=== PATIENT | female | born 1940 | race Caucasian/White ===

== ENCOUNTER → 2016-10-27 | Outpatient (CLI) | payer MEDICARE, BC ==
[~2016-10-27] MED LIST: ASA325 MG PO; ATIVAN-DPS0.5 MG PO; BENADRYL-DPS25 MG PO; CITRACAL SOFT1 EACH PO; MAALOX DPS30 ML PO; MILK OF MAGNESI10 ML PO; NORVASC5 MG PO; OMEGA-3 DPS1000 MG PO; OXY IR DPS5 MG PO; PRESERVISION A1 EAC1 PO; SENOKOT S1 TAB PO; SURFAK DPS240 MG PO; THERA1 EACH PO; TYLENOL DPS325 MG PO; ULTRAM DPS50 MG PO; ZANTAC150 MG PO; ZOCOR DPS40 MG PO; ZOLOFT DPS50 MG PO
== END | disposition home or self-care (01) ==
LOC: PTH.S 08:46
DX: Z01.818 Encounter for other preprocedural examination (principal)

== ENCOUNTER 2016-11-08 05:00 | Inpatient (IN) | payer MEDICARE, BC ==
[~2016-11-08] VITALS: Ht 157.5 cm; Wt 86.0 kg
--- NOTE | ~2016-11-08 | HP ---
ADMIT: 11/08/2016 RM/LOC: W.01 [facility] MR#: [id number] [id number] [address] AVA MAHARAJ L [address] [place] [address] Pre-OP History and Physical SEX: F AGE: 76 : 1940 DATE OF SERVICE: CHIEF COMPLAINT: Shoulder pain. HISTORY OF PRESENT ILLNESS: The patient is a 76-year-old female, with a longstanding history of right shoulder pain. She had left shoulder replacement with good result. She has failed conservative care on the right, now being admitted for right shoulder arthroplasty. PAST MEDICAL HISTORY: Include hypertension. PAST SURGICAL HISTORY: Include a left shoulder arthroplasty. MEDICATIONS: Include: 1. Multiple vitamin. 2. Calcium. 3. Aspirin. 4. Ativan. 5. Prilosec. 6. Norvasc. 7. Zoloft. 8. Zocor. ALLERGIES: NONE. SOCIAL HISTORY: Denies any significant tobacco or alcohol use. REVIEW OF SYSTEMS: Negative. PHYSICAL EXAMINATION: GENERAL: On exam, a 76-year-old female. MUSCULOSKELETAL: She has a large amount of crepitus in the right shoulder with external rotation of 45, elevate to 110, good rotator cuff strength. ADMIT: 11/08/2016 RM/LOC: W.01 [facility] MR#: [id number] [facility] [address] [address] AVA MAHARAJ [address] [place], [place] [address] Pre-OP History and Physical SEX: F AGE: 76 : 1940 Arms neurovascularly intact. No radicular symptoms. DIAGNOSTIC DATA: X-rays AP axial, scapular Y shows advanced right shoulder arthritis. Good made subacromial space, subchondral cystic changes in the humeral head. IMPRESSION: Advanced right shoulder degenerative joint disease. PLAN: We talked about different options. Planned on proceeding with right shoulder arthroscopy, possible total shoulder arthroplasty, due to the pinning on the glenoid concentricity. She is aware of risks, benefits, options, and agreed to proceed. She has been seen and cleared from a medical standpoint. Kareem Collins MD/ shira JOB #: [id number] CC: Kareem Collins, Attending Physician Billy Villeda, Family Physician
--- NOTE | 2016-11-08 08:16 | CO ---
ADMIT: 11/08/2016 RM/LOC: W.01 [facility] MR#: [id number] [id number] [address] CRISSY MAHARAJ [address] [place] [address] Consultation Report SEX: F AGE: 76 : 1940 DATE OF CONSULTATION: 10/27/2016 ATTENDING PHYSICIAN: Kareem Collins CONSULTING PHYSICIAN: Billy Villeda MD CHIEF COMPLAINT: Preoperative evaluation facing right total shoulder arthroplasty with Dr. Collins next week. HISTORY OF PRESENT ILLNESS: Is a very nice 76-year-old woman who has had multiple orthopedic issues. She had a left total shoulder done with Dr. Collins in September 2011 and got along well with that. Her right shoulder has been giving her increasing problems over the last couple of years to the point now where she has only about 30%-40% range of motion and has pretty much constant pain in it. The pain is worse if she attempts to abduct her shoulder. It is difficult for her to put on her coat and it keeps her awake at night, "I like to lie on that side." She has been followed by Dr. Collins and they have come to the conclusion that it is time to do right total shoulder for her and we were asked to see her for preoperative evaluation. PAST MEDICAL HISTORY: PREVIOUS SURGICAL HISTORY: Includes appendectomy, cholecystectomy, carpal tunnel surgery, bilateral total knee arthroplasties, bilateral inguinal lymphadenectomy and repeat vulvar excision [place] [address] [facility] [facility] for neoplasia. MEDICAL PROBLEMS: Include esophageal reflux, glucose intolerance, hyperlipidemia, systemic hypertension, diffuse osteoarthritis, osteoporosis, peripheral neuropathy, distant history of idiopathic urticaria. ALLERGIES: NONE REPORTED. MEDICATIONS: Include: 1. Simvastatin 40 mg at bedtime. 2. Multivitamin one daily. 3. Amlodipine 5 mg daily. 4. Citracal 2 tabs daily. 5. Aspirin 325 mg daily (on hold). 6. Fish oil 2000 mg t.i.d. (on hold). 7. Sertraline 50 mg daily. 8. Ativan 5 mg daily p.r.n. anxiety. 9. Zantac 150 mg daily. 10.PreserVision vitamin b.i.d. SOCIAL HISTORY: Reveals that she is a 5, para 4, abortus 1. Went through her menopause in early 50s. She drinks 3-4 cups of coffee a day. She has never been a smoker. She does not use alcohol. She is quite active and tries have good exercise habits. She and her live independently in ADMIT: 11/08/2016 RM/LOC: W.Darcie [facility] MR#: [id number] [id number] [address] CRISSY MAHARAJ [address] [place] [address] Consultation Report SEX: F AGE: 76 : 1940 their home. FAMILY HISTORY: Noncontributory. REVIEW OF SYSTEMS: A 10 point review of systems is otherwise negative - she states she is feeling well and had no new health concerns. PHYSICAL EXAMINATION: GENERAL: She is alert, talkative in good humor. No apparent distress. VITAL SIGNS: Blood pressure 128/72, pulse of 68, she is afebrile, BMI is 33.8, and O2 saturation is 96% on room air. HEENT: Essentially negative. NECK: Reasonably supple. I detect no bruits. LUNGS: Clear to auscultation. CARDIAC: Exam shows regular rhythm. I do not detect an obvious murmur. ABDOMEN: Soft. No masses, tenderness, organomegaly. EXTREMITIES: Lower extremities show a trace of pedal edema. She has excellent pulses in her feet. She has markedly diminished range of motion in her right shoulder. NEUROLOGIC: Otherwise normal within her ability to test. IMPRESSION: 1. 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 2. Previous left total shoulder arthroplasty. 3. Glucose intolerance. 4. Hyperlipidemia. 5. Systemic hypertension - controlled. 6. Diffuse osteoarthritis. ADMIT: 11/08/2016 RM/LOC: W.01 [facility] MR#: [id number] [id number] [address] CRISSY MAHARAJ [address] [place] [address] Consultation Report SEX: F AGE: 76 : 1940 7. Osteoporosis. 8. Lower extremity peripheral neuropathy. 9. Status post multiple operations as outlined above. PLAN: We will have her hold her aspirin, but we will resume it on postop day 1. I do not think any other anticoagulation is indicated for total shoulder. I have reviewed her preop laboratory studies and EKG both of which are stable/normal. I think it is fine to proceed with this operation, I anticipate Crissy will do very well. She understands the need for extensive postop physical therapy. Thanks for including us in her care. Billy Villeda MD/ shira JOB #: [id number] CC: Kareem Collins, Attending Physician Billy Villeda, Family Physician
[2016-11-11] MEDS ORDERED: ZOCOR DPS40 MG PO (17:27)
[2016-11-11] MEDS ORDERED: NORVASC5 MG PO (17:27)
[2016-11-11] MEDS ORDERED: THERA1 EACH PO (17:27)
[2016-11-11] MEDS ORDERED: CITRACAL SOFT1 EACH PO (17:28)
[2016-11-11] MEDS ORDERED: ASA325 MG PO (17:28)
[2016-11-11] MEDS ORDERED: OMEGA-3 DPS1000 MG PO (17:29)
[2016-11-11] MEDS ORDERED: ZOLOFT DPS50 MG PO (17:29)
[2016-11-11] MEDS ORDERED: ZANTAC150 MG PO (17:29)
[2016-11-11] MEDS ORDERED: ATIVAN-DPS0.5 MG PO (17:29)
[2016-11-11] MEDS ORDERED: PRESERVISION A1 EAC1 PO (17:29)
[2016-11-11] MEDS ORDERED: OXY IR DPS5 MG PO (17:30)
[2016-11-11] MEDS ORDERED: MILK OF MAGNESI10 ML PO (17:30)
[2016-11-11] MEDS ORDERED: MAALOX DPS30 ML PO (17:30)
[2016-11-11] MEDS ORDERED: BENADRYL-DPS25 MG PO (17:30)
[2016-11-11] MEDS ORDERED: SURFAK DPS240 MG PO (17:31)
[2016-11-11] MEDS ORDERED: ULTRAM DPS50 MG PO (17:31)
[2016-11-11] MEDS ORDERED: TYLENOL DPS325 MG PO (17:31)
[2016-11-11] MEDS ORDERED: SENOKOT S1 TAB PO (17:31)
--- NOTE | 2016-11-20 09:27 | OR ---
ADMIT: 11/08/2016 RM/LOC: 510 [facility] MR#: [id number] [id number] [address] AVA MAHARAJ [address] [place] [address] Operative/Delivery Room Report SEX: F AGE: 76 : 1940 SURGERY DATE: 11/08/2016 SURGEON: Kareem Collins MD PREOPERATIVE DIAGNOSIS: Right shoulder degenerative joint disease. POSTOPERATIVE DIAGNOSIS: Right shoulder degenerative joint disease. PROCEDURE: Right total shoulder arthroplasty. ASSISTANTS: 1. Trenton Anguiano PA-C. 2. SABIHA Carter. COMPLICATIONS: None. ESTIMATED BLOOD LOSS: 200 mL. COMPONENTS: 1. A 12 mm global stem. 2. A 44 x 15 eccentric head. 3. A 44 mm glenoid component. DESCRIPTION OF PROCEDURE: The patient was taken to the operating room, received a general anesthetic, placed in a semi-beach chair position. The right shoulder was prepped and draped in standard fashion. Deltopectoral approach was performed. Dissection carried through subcutaneous tissue. The deltopectoral interval was opened. The deltoid retracted laterally. At that point, we released the subacromial adhesions. We then opened up the bicipital groove and released the subscapularis off the lesser tuberosity, did a biceps tenodesis. We removed the biceps stump. At that point, with sequential elevation and external rotation, released the inferior capsule along the entire anterior humeral neck. We then were able to sublux the shoulder anteriorly. We then opened up the proximal humerus. We reamed up to a 12 mm reamer using the extramedullary guide, we cut the humeral head in 30 degrees retroversion. At that point, we removed the humeral head. We then broached the proximal humerus to the 12 mm broach, removed the broach and then placed the protector plate on the humeral head. We then exposed the glenoid, removed the remaining labrum, did a 360-degree release of the subscapularis tendon. At that point, we elected to proceed with total shoulder arthroplasty. We fit it for 44 mm glenoid component and placed the guidepin in the center of the glenoid vault, used the reamer smooth off the anterior aspect of the glenoid. At that point, we made our central drill hole and using the template made our superior and 2 inferior holes, put a trial glenoid in place. At that point, we had excellent stability. No rocking and good position. We then removed the glenoid, mixed the cement. We then placed cement in the three peripheral holes. We then impacted the glenoid into the glenoid vault with an excellent ADMIT: 11/08/2016 RM/LOC: [address] [place] [address] MR#: [id number] [address] [place], [place] [id number] AVA MAHARAJ [address] [place] [address] Operative/Delivery Room Report SEX: F AGE: 76 : 1940 press-fit and good stability. At that point, once the cement was hard, we reduced the humerus with 44 x +15 eccentric head in the posterior superior position. We had excellent stability and good range of motion. At that point, we dislocated the shoulder, made past 3 Ethibond sutures to the lesser tuberosity for future subscapularis repair. We then impacted the humeral component, impacted the humeral head. At that point, reduced the shoulder, was again found to be stable. We repaired the interval with 0 Ethibond suture. We repaired the subscapularis with 0 Ethibond suture. Irrigated out the wounds thoroughly, closed the deltopectoral interval with 0 Vicryl, subcutaneous with 2-0 Vicryl, and nylon in the skin. We applied sterile dressings, placed in a mobilizer, and taken to recovery room in stable condition. No complications. Kareem Collins MD/ shira JOB #: [id number] CC: Kareem Collins, Attending Physician Billy Villeda, Family Physician
--- NOTE | 2016-11-29 10:16 | DS ---
ADMIT: 11/08/2016 RM/LOC: 510 [facility] MR#: [id number] [id number] [address] [address] AVA MAHARAJ [address] [place] [address] General Discharge Summary SEX: F AGE: 76 : 1940 ADMISSION DATE: 11/08/2016 DISCHARGE DATE: 11/10/2016 REASON FOR ADMISSION: Right total shoulder arthroplasty after failing conservative care. PREOPERATIVE DIAGNOSIS: Right shoulder degenerative joint disease. POSTOPERATIVE DIAGNOSIS: Right shoulder degenerative joint disease. PROCEDURE PERFORMED: Right total shoulder arthroplasty. SURGEON: Kareem Collins MD. ASSISTANTS: 1. Trenton Anguiano PA-C. 2. Kaley Dela Cruz PA-C. COMPLICATIONS: None. ANESTHESIA: General. ESTIMATED BLOOD LOSS: 200 mL. ACTIVE MEDICAL PROBLEMS: Esophageal reflux, glucose intolerance, hyperlipidemia, systemic hypertension, diffuse osteoarthritis, osteoporosis, peripheral neuropathy, distant history of idiopathic urticaria. HOSPITAL COURSE: The patient was admitted on 11/08/2016, for elective right total shoulder arthroplasty, done successfully without any complications by Dr. Collins. The patient tolerated the procedure well. Postoperatively, the patient did well with pain control. She did suffer from some acute blood-loss anemia. Her hemoglobin dropped to 10.0 on 11/10/2016, but she remained hemodynamically stable and did not require blood transfusion. By postoperative day #2, she was safe and participating well with physical therapy. She was stable and ready for discharge with plans for outpatient physical therapy exercises. DISCHARGE MEDICATIONS: 1. Simvastatin 40 mg everyday. 2. Amlodipine 5 mg everyday. 3. Multivitamin everyday. 4. Citracal 2 tablets everyday. 5. Aspirin 325 mg everyday. 6. Fish oil 2000 mg three times daily. 7. Sertraline 50 mg everyday. 8. Ativan 0.5 mg daily as needed. 9. Zantac 150 mg everyday. 10.PreserVision twice daily. ADMIT: 11/08/2016 RM/LOC: 510 [facility] MR#: [id number] [id number] [address] AVA MAHARAJ [address] [place] [address] General Discharge Summary SEX: F AGE: 76 : 1940 11.Benadryl 25 mg one tablet every 6 hours as needed. 12.Maalox 30 mL every 6 hours as needed. 13.Milk of magnesia 10 mL daily as needed. 14.Oxycodone IR 5 mg one to two tablets every 4 hours as needed for pain. 15.Senokot 1 tablet twice daily as needed. 16.Surfak 240 mg twice a day as needed. 17.Tylenol 650 mg every 4 hours as needed. 18.Ultram 50 mg one to 2 tablets every 4 hours as needed. DISCHARGE INSTRUCTIONS: The patient was discharged home with plans for outpatient physical therapy exercises per total shoulder arthroplasty protocol. Follow up in the Orthopedic office in 2 weeks for wound check, in 6 weeks with x-ray. Follow up with primary care as directed. SABIHA Carter / Kareem Collins MD / russl JOB #: [id number] CC: Kareem Collins MD, Attending Physician Billy Villeda MD, Family Physician
== END 2016-11-10 14:30 | disposition home or self-care (01) | DRG 483 ==
LOC: 5MS 05:00 → WOR 05:00 → 5MS 09:22
PROVIDERS: ADMIT Orthopaedic Surgery
PROC: 0RRJ0JZ Replacement of Right Shoulder Joint with Synthetic Substitute, Open Approach (ICD-10-PCS; principal; 2016-11-08)
DX: M15.9 Polyosteoarthritis, unspecified (principal); G62.9 Polyneuropathy, unspecified; D62 Acute posthemorrhagic anemia; I10 Essential (primary) hypertension; K21.9 Gastro-esophageal reflux disease without esophagitis; E78.5 Hyperlipidemia, unspecified; M81.0 Age-related osteoporosis without current pathological fracture; E74.39 Other disorders of intestinal carbohydrate absorption; Z96.612 Presence of left artificial shoulder joint; Z96.653 Presence of artificial knee joint, bilateral; Z79.82 Long term (current) use of aspirin

== ENCOUNTER 2016-12-20 01:58 | Emergency (ER) | payer MEDICARE, BC ==
--- NOTE | 2016-12-24 19:15 | ER ---
ADMIT: 12/20/2016 RM/LOC: ER [facility] MR#: [id number] [address] [address] [address]A L [address] [place] [address] Emergency Room Report SEX: F AGE: 76 : 1940 DATE: 12/20/2016 Patient is a 76-year-old female, status post recent vaginectomy and inguinal lymph node dissection, having acute urinary retention despite having Palmer catheter. Exam remarkable for kinked Palmer and high-riding urinary bag. Palmer catheter was unkinked and catheter bag placed on lower leg, had 600 mL of drainage and relief of lower abdominal discomfort. Follow up Dr. Elayne Trotter as scheduled. Macario Hall MD/ shira JOB #: [id number] CC: Macario Hall MD, Attending Physician Billy Villeda MD, Family Physician
== END 2016-12-20 02:45 | disposition home or self-care (01) ==
LOC: ER 01:58
PROC: [UNRECOGNIZED PROCEDURE] (principal; 2016-12-20)
DX: T83.018A Breakdown (mechanical) of other urinary catheter, initial encounter (principal); N13.9 Obstructive and reflux uropathy, unspecified; I10 Essential (primary) hypertension; E78.5 Hyperlipidemia, unspecified; Z85.41 Personal history of malignant neoplasm of cervix uteri

== ENCOUNTER 2017-01-01 00:17 | Emergency (ER) | payer MEDICARE, BC ==
--- NOTE | 2017-01-01 19:04 | ER ---
ADMIT: 01/01/2017 RM/LOC: ER [facility] MR#: [id number] [address] [address] AVA MAHARAJ [address] [place] [address] Emergency Room Report SEX: F AGE: 76 : 1940 CORRECTED: 01/01/2017 1630 AJ DATE: 01/01/2017 The patient is a 76-year-old female, status post recent gynecologic procedure complaining of urinary frequency and dysuria. Exam remarkable for nontoxic, afebrile female. Urinalysis shows 3+ leukocyte esterase, 157 wbc's, normal CMP and lactic acid, CRP 0.78, hemoglobin 9.0, normal WBC. The patient given Pyridium 190 mg p.o. in department and t.i.d. x3 days, continue Macrodantin 100 mg b.i.d. for 7 days. Follow up with Dr. Villeda or Dr. Elayne Trotter end of antibiotic course. Macario Hall MD/ shira JOB #: [id number] CC: Macario Hall MD, Attending Physician Billy Villeda MD, Family Physician MD Billy Lewis MD CORRECTED: 01/01/20171629 [facility]
== END 2017-01-01 02:53 | disposition home or self-care (01) ==
LOC: ER 00:17
DX: N30.90 Cystitis, unspecified without hematuria (principal); F41.9 Anxiety disorder, unspecified; Z90.49 Acquired absence of other specified parts of digestive tract; Z79.82 Long term (current) use of aspirin; Z79.899 Other long term (current) drug therapy

== ENCOUNTER → 2017-01-10 | Outpatient (CLI) | payer MEDICARE, BC | END | disposition home or self-care (01) | LOC: RAD.S 08:05 | DX: Z12.31 Encounter for screening mammogram for malignant neoplasm of breast (principal) ==